=== PATIENT | female | born 1980 | race Caucasian/White ===

== ENCOUNTER 2017-07-26 11:55 | Emergency (ER) | payer MEDICAID ==
[~2017-07-26] VITALS: Ht 157.5 cm; Wt 86.9 kg
[2017-07-26 12:12] VITALS: BP 128/91
--- NOTE | 2017-07-26 12:17 | NUR ---
PATIENT PRESENTS TO ED WITH LEFT EAR PAIN X 4 DAYS DENIES INJURY NO DRAINAGE . PT STATES . DENIES N/V/D; SKIN IS PINK/WARM/DRY; AAOX4 WITH EVEN AND STEADY GAIT; LUNGS CLEAR BL; HR EVEN AND REGULAR; PT DENIES ANY FEVER, CP, SOB, OR COUGH AT THIS TIME; PATIENT STATES PAIN OF 8/10 AT THIS TIME; VSS; PATIENT POSITIONED FOR COMFORT; HOB ELEVATED; BEDRAILS UP X2; BED DOWN. ER MD MADE AWARE OF PT STATUS.
--- NOTE | 2017-07-26 12:21 | NUR ---
DR FISHER AT BEDSIDE.
--- NOTE | 2017-07-26 12:28 | NUR ---
Patient discharged with v/s stable. Written and verbal after care instructions given and explained. Patient alert, oriented and verbalized understanding of instructions. Ambulatory with steady gait. All questions addressed prior to discharge. ID band removed. Patient advised to follow up with PMD. Rx of CIPRODEX given. Patient educated on indication of medication including possible reaction and side effects. Opportunity to ask questions provided and answered.
[2017-07-26 12:29] VITALS: BP 120/87
== END 2017-07-26 12:28 | disposition home or self-care (01) ==
LOC: MED 11:55
DX: H60.92 Unspecified otitis externa, left ear (principal); J45.909 Unspecified asthma, uncomplicated; I10 Essential (primary) hypertension; Z88.6 Allergy status to analgesic agent
CPT/HCPCS: 99283

== ENCOUNTER 2017-12-26 15:22 | Emergency (ER) | payer MEDICAID ==
[~2017-12-26] VITALS: Ht 157.5 cm; Wt 85.3 kg
[2017-12-26 15:26] VITALS: BP 132/86
--- NOTE | 2017-12-26 15:35 | NUR ---
37f bib with c/o 9/10 "sharp" left side facial pain radiating "at times" to left side of torso x 1 wk. Pt also report of n/v/d and photophobia. Pt is aox4 with steady gait. No acute neuro deficits noted. Skin is warm/dry/color appriopriate for ethnicity. RR are even and unlabored. No acute distress noted. ER md yuan by bedside examining pt. All needs met at this time. Will continue to monitor.
[2017-12-26] MEDS ORDERED: diphenhydrAMINE 50 MG/ML VIAL IM ONE (15:40)
[2017-12-26] MEDS ORDERED: PROCHLORPERAZINE 10 MG/2 ML VIAL IM ONE (15:40)
[2017-12-26 17:24] VITALS: BP 124/86
--- NOTE | 2017-12-26 17:24 | NUR ---
Patient discharged with v/s stable. Written and verbal after care instructions given and explained. Patient alert, oriented and verbalized understanding of instructions. Ambulatory with steady gait. All questions addressed prior to discharge. ID band removed. Patient advised to follow up with PMD. Rx of Compazine nad Benadryl given. Patient educated on indication of medication including possible reaction and side effects. Opportunity to ask questions provided and answered.
== END 2017-12-26 17:19 | disposition home or self-care (01) ==
LOC: MED 15:22
DX: G43.909 Migraine, unspecified, not intractable, without status migrainosus (principal); J45.909 Unspecified asthma, uncomplicated; I10 Essential (primary) hypertension; Z79.899 Other long term (current) drug therapy
CPT/HCPCS: 96372; 99284; J0780; J1200

== ENCOUNTER 2018-10-01 13:17 | Emergency (ER) | payer MEDICAID ==
[~2018-10-01] VITALS: Ht 157.5 cm; Wt 80.4 kg
[2018-10-01 13:49] VITALS: BP 122/84
--- NOTE | 2018-10-01 13:59 | NUR ---
Patient being evaluated by physician at bedside.
--- NOTE | 2018-10-01 14:03 | NUR ---
C/O BURNING LLQ PAIN RADIATING TO RLQ 7/10 WITH DIZZINESS AND MIGRAIN HEAD ACHE /10; -NVD. PER PT WAS SEEN AT [place] ABOUT 2 MONTHS AGO. PATIENT STATES PAIN OF 8/10 AT THIS TIME; VSS; PATIENT POSITIONED FOR COMFORT; HOB ELEVATED; BEDRAILS UP X1; BED DOWN. ER MD MADE AWARE OF PT STATUS.
--- NOTE | 2018-10-01 14:21 | NUR ---
PT TAKEN TO XRAY VIA WHEELCHAIR
[2018-10-01] MEDS ORDERED: KETOROLAC 30 MG/ML VIAL IVP ONE (14:30)
[2018-10-01] MEDS ORDERED: NACL 0.9% 1,000 ML IV ONE (14:30)
[2018-10-01 15:42] LABS: BASOPHILS % (AUTO) 0.5 % (0.0-2.0); EOSINOPHILS # (AUTO) 0.1 K/uL (0-0.4); EOSINOPHILS % (AUTO) 1.5 % (0.0-4.0); HEMATOCRIT 42.3 % (36-48); HEMOGLOBIN 14.1 g/dL (12.0-16.0); LYMPHOCYTES # (AUTO) 1.9 K/uL (2.5-16.5); LYMPHOCYTES % (AUTO) 34.4 % (20.5-51.1); MEAN CORPUSCULAR HEMOGLOBIN 28 pg (27-31); MEAN CORPUSCULAR HGB CONC 33 g/dL (33-37); MEAN CORPUSCULAR VOLUME 83.8 fL (80-94); MONOCYTES # (AUTO) 0.6 K/uL (0.8-1.0); MONOCYTES % (AUTO) 10.3 % (1.7-9.3); NEUTROPHILS # (AUTO) 2.9 K/uL (1.8-7.7); NEUTROPHILS % (AUTO) 53.3 % (42.2-75.2); PLATELET COUNT (AUTO) 176 K/uL (140-450); RED BLOOD CELL COUNT(AUTO) 5.05 MIL/uL (4.20-5.40); RED CELL DISTRIBUTION WIDTH 13.3 % (11.6-13.7); WHITE BLOOD COUNT (AUTO) 5.5 K/uL (4.8-10.8)
[2018-10-01 16:04] LABS: ANION GAP 8.9 (8-16); CARBON DIOXIDE 29.1 mmol/L (21-32); CREATININE 0.8 mg/dL (0.6-1.3)
[2018-10-01 16:08] LABS: ALBUMIN 3.6 g/dL (3.4-5.0); TOTAL BILIRUBIN 0.5 mg/dL (0.0-1.0)
[2018-10-01 16:40] VITALS: BP 135/72
--- NOTE | 2018-10-01 16:40 | NUR ---
Patient discharged with v/s stable. Written and verbal after care instructions given and explained. Patient alert, oriented and verbalized understanding of instructions. Ambulatory with steady gait. All questions addressed prior to discharge. ID band removed. Patient advised to follow up with PMD. Rx of mineral oil/ lactulose given. Patient educated on indication of medication including possible reaction and side effects. Opportunity to ask questions provided and answered.
== END 2018-10-01 16:40 | disposition home or self-care (01) ==
LOC: MED 13:17
DX: K59.00 Constipation, unspecified (principal); J45.909 Unspecified asthma, uncomplicated; I10 Essential (primary) hypertension; Z88.6 Allergy status to analgesic agent
CPT/HCPCS: 36415; 74022; 76856; 80053; 81002; 81025; 85025; 96374; 99284; J1885; J7030; Q0092

== ENCOUNTER 2019-07-28 09:34 | Emergency (ER) | payer MEDICAID ==
[~2019-07-28] VITALS: Ht 160 cm; Wt 80.7 kg
[2019-07-28 09:41] VITALS: BP 116/76
--- NOTE | 2019-07-28 09:56 | NUR ---
C/O CENTER LOWER BACK PAIN / X1 WEEK. PT DENIES INJURY, NUMBNESS/TINGLING TO BLE. BED IN LOW POSITION, SIDE RAIL UP X1.
--- NOTE | 2019-07-28 10:10 | NUR ---
DR. MARTINEZ AT BEDSIDE
[2019-07-28] MEDS ORDERED: MORPHINE SULFATE 4 MG/ML SYR IM ONE (10:20)
[2019-07-28] MEDS ORDERED: KETOROLAC 60 MG/2 ML VIAL IM ONE (10:20)
[2019-07-28 11:00] VITALS: BP 116/76
== END 2019-07-28 11:00 | disposition home or self-care (01) ==
LOC: MED 09:34
DX: S33.5XXA Sprain of ligaments of lumbar spine, initial encounter (principal); S39.012A Strain of muscle, fascia and tendon of lower back, initial encounter; M47.816 Spondylosis without myelopathy or radiculopathy, lumbar region; J45.909 Unspecified asthma, uncomplicated; I10 Essential (primary) hypertension; Z88.5 Allergy status to narcotic agent; X58.XXXA Exposure to other specified factors, initial encounter; Y92.89 Other specified places as the place of occurrence of the external cause; Y93.89 Activity, other specified; Y99.8 Other external cause status
CPT/HCPCS: 81002; 81025; 96372; 99283; J1885; J2270

== ENCOUNTER 2019-11-13 13:26 | Emergency (ER) | payer MEDICAID ==
[~2019-11-13] VITALS: Ht 160 cm; Wt 81.9 kg
[2019-11-13 13:30] VITALS: BP 122/80
[2019-11-13 13:37] VITALS: BP 122/80
[2019-11-13] MEDS ORDERED: PRON INH (13:37)
--- NOTE | 2019-11-13 13:37 | NUR ---
PT IN ER LOBBY
--- NOTE | 2019-11-13 13:42 | NUR ---
PT AMBULATED TO BED 01.
--- NOTE | 2019-11-13 14:36 | NUR ---
Stable. VSS. No pain. MD has assessed and Dc'd home with script. To exit
== END 2019-11-13 14:36 | disposition home or self-care (01) ==
LOC: MED 13:26
DX: K60.2 Anal fissure, unspecified (principal); J45.909 Unspecified asthma, uncomplicated; I10 Essential (primary) hypertension; Z79.899 Other long term (current) drug therapy; Z88.6 Allergy status to analgesic agent
CPT/HCPCS: 81025; 99283

== ENCOUNTER 2020-02-25 08:33 | Emergency (ER) | payer MEDICAID ==
[~2020-02-25] VITALS: Ht 157.5 cm; Wt 81.2 kg
[~2020-02-25 08:33] MED LIST: PRON INH
[2020-02-25 08:37] VITALS: BP 132/86
--- NOTE | 2020-02-25 08:43 | NUR ---
dr perales at bedside evaluating pt.
[2020-02-25] MEDS ORDERED: DIAZEPAM 5 MG TAB PO ONE (09:00)
[2020-02-25] MEDS ORDERED: KETOROLAC 30 MG/ML VIAL IM ONE (09:00)
--- NOTE | 2020-02-25 09:04 | NUR ---
R SHOULDER PAIN X 1 WEEK DENIES INJURY , PT AWAKE, AOX4 , SCE , CBS BLF, LIMITED ROM RT SHOULDER. PMH- ASTHMA, HTN
--- NOTE | 2020-02-25 09:09 | NUR ---
xray at bedside.
--- NOTE | 2020-02-25 09:33 | NUR ---
PLACED SLING ON PT'S RIGHT ARM
--- NOTE | 2020-02-25 09:35 | NUR ---
PULSES WNL POST SLING
[2020-02-25 09:39] VITALS: BP 128/76
--- NOTE | 2020-02-25 09:39 | NUR ---
Patient discharged with v/s stable. Written and verbal after care instructions given and explained. Patient alert, oriented and verbalized understanding of instructions REAGRDING TENDONITIS. Ambulatory with steady gait. All questions addressed prior to discharge. ID band removed. Patient advised to follow up with PMD. Rx of VALIUM AND NAPROSYN given. Patient educated on indication of medication including possible reaction and side effects. Opportunity to ask questions provided and answered. INSTRUCTED TO APPLY ICE 2-3 TIMES PER DAY AND TO KEEP ARM AT HEART LEVEL WHEN RESTING AND TO WEAR SLING WHEN ACTIVE OR NOT AT HOME GIVEN EXCUSE FOR WORK GIVEN COPY OF XRAY RESULTS
--- NOTE | 2020-02-25 09:39 | NUR ---
NADR, PT REPORTS DECREASED PAIN. 12/03
== END 2020-02-25 09:39 | disposition home or self-care (01) ==
LOC: MED 08:33
DX: M75.31 Calcific tendinitis of right shoulder (principal); J45.909 Unspecified asthma, uncomplicated; I10 Essential (primary) hypertension; Z88.8 Allergy status to other drugs, medicaments and biological substances; Z90.49 Acquired absence of other specified parts of digestive tract
CPT/HCPCS: 73030; 96372; 99283; J1885; Q0092

== ENCOUNTER 2021-01-01 20:27 | Emergency (ER) | payer MEDICAID ==
[~2021-01-01] VITALS: Ht 157.5 cm; Wt 80.3 kg
[2021-01-01 20:31] VITALS: BP 129/72
[2021-01-01] MEDS ORDERED: ONDANSETRON 4 MG ODT PO ONE (21:00)
[2021-01-01] MEDS ORDERED: ONDA4TAB PO (21:13)
[2021-01-01 23:00] VITALS: BP 123/90
== END 2021-01-01 23:00 | disposition home or self-care (01) ==
LOC: MED 20:27
DX: R11.2 Nausea with vomiting, unspecified (principal); I10 Essential (primary) hypertension; J45.909 Unspecified asthma, uncomplicated; Z79.899 Other long term (current) drug therapy; Z88.5 Allergy status to narcotic agent
CPT/HCPCS: 81025; 99283; Q0162

== ENCOUNTER 2021-02-19 08:59 | Emergency (ER) | payer MEDICAID ==
[~2021-02-19] VITALS: Ht 157.5 cm; Wt 81.2 kg
[~2021-02-19 08:59] MED LIST changes: +ONDA4TAB PO
[2021-02-19 09:06] VITALS: BP 154/100
--- NOTE | 2021-02-19 09:14 | NUR ---
Patient ambulated to bed 2 with a steady gait.
--- NOTE | 2021-02-19 09:14 | NUR ---
Patient ambulated to bed 2. RN evaluating the patient at bedside.
--- NOTE | 2021-02-19 09:15 | NUR ---
Patient ambulated to the restroom with a steady gait.
--- NOTE | 2021-02-19 09:27 | NUR ---
Patient is a 40 y/o female c/c headache x5 days, n/v and dry cough since yesterday. Patient states the headache is a dull ache that is 9/10 in severity. Patient denies injury, trauma or LOC. Patient denies recent travel, covid-19 exposure, or sick contacts. PMH: asthma, HTN Surgeries: Hysterectomy 2017; cholecystectomy 2011
[2021-02-19] MEDS ORDERED: diphenhydrAMINE 50 MG/ML VIAL ONE (09:44)
[2021-02-19] MEDS: diphenhydrAMINE 50 MG/ML VIAL IVP ONE (09:50)
[2021-02-19] MEDS: NACL 0.9% 1,000 ML IV ONE (09:50)
[2021-02-19] MEDS: METOCLOPRAMIDE 10 MG/2 ML INJ VIAL IVP ONE (09:51)
[2021-02-19] MEDS: KETOROLAC 15 MG/ML VIAL IVP ONE (09:52)
[2021-02-19] MEDS ORDERED: ONDA-24 SL (10:30)
[2021-02-19] MEDS ORDERED: ACET-2619 PO (10:30)
[2021-02-19 10:49] VITALS: BP 154/100
--- NOTE | 2021-02-19 10:49 | NUR ---
Patient discharged with v/s stable. Written and verbal after care instructions given and explained. Patient alert, oriented and verbalized understanding of instructions. Ambulatory with steady gait. All questions addressed prior to discharge. ID band removed. Patient advised to follow up with PMD. Rx of acetaminophen, ondansetro given. Patient educated on indication of medication including possible reaction and side effects. Opportunity to ask questions provided and answered.
== END 2021-02-19 10:49 | disposition home or self-care (01) ==
LOC: MED 08:59
DX: G43.909 Migraine, unspecified, not intractable, without status migrainosus (principal); R11.2 Nausea with vomiting, unspecified; Z90.710 Acquired absence of both cervix and uterus
CPT/HCPCS: 81002; 81025; 96361; 96374; 96375; 99284; J1200; J1885; J2765; J7030

== ENCOUNTER 2021-10-12 10:44 | Emergency (ER) | payer MEDICAID ==
[~2021-10-12] VITALS: Ht 157.5 cm; Wt 78.5 kg
[~2021-10-12 10:44] MED LIST changes: +ACET-2619 PO; +ONDA-188 SL
[2021-10-12 11:09] VITALS: BP 133/92
[2021-10-12] MEDS ORDERED: PRED20TA5 PO (11:40)
[2021-10-12] MEDS ORDERED: CODE5SYR5 PO (11:40)
[2021-10-12] MEDS ORDERED: NAPR-54 PO (11:40)
[2021-10-12 12:01] VITALS: BP 128/84
--- NOTE | 2021-10-12 12:01 | NUR ---
Patient discharged with v/s stable. Written and verbal after care instructions given FOR VIRAL ILLNESS and explained. Patient alert, oriented and verbalized understanding of instructions. Ambulatory with steady gait. All questions addressed prior to discharge. ID band removed. Patient advised to follow up with PMD. Rx of PROMETHAZINE, NAPROXEN, AND PREDNISONE given. Patient educated on indication of medication including possible reaction and side effects. Opportunity to ask questions provided and answered.
[2021-10-12] MEDS ORDERED: PROM118S5 PO (12:26)
[2021-10-13] MEDS ORDERED: PRED20TA5 PO (19:40)
[2021-10-13] MEDS ORDERED: NAPR-54 PO (19:40)
[2021-10-13] MEDS ORDERED: PROM118S5 PO (19:40)
== END 2021-10-12 12:01 | disposition home or self-care (01) ==
LOC: MED 10:44
DX: B34.9 Viral infection, unspecified (principal); R51.9 Headache, unspecified; J45.909 Unspecified asthma, uncomplicated; I10 Essential (primary) hypertension; Z88.5 Allergy status to narcotic agent; Z79.899 Other long term (current) drug therapy
CPT/HCPCS: 99283

== ENCOUNTER 2022-03-06 09:40 | Emergency (ER) | payer MEDICAID ==
[~2022-03-06] VITALS: Ht 157.5 cm; Wt 72.1 kg
[~2022-03-06 09:40] MED LIST changes: +CODE5SYR5 PO; +NAPR-54 PO; +PRED20TA5 PO; +PROM118S5 PO
[2022-03-06 09:50] VITALS: BP 115/52
[2022-03-06] MEDS ORDERED: methylPREDNISolone SS 125 MG/2 ML VIAL IVP ONE (10:10)
[2022-03-06] MEDS ORDERED: ALBUTEROL HFA MDI 90 MCG/ACTUATION 8 GM INH ONE (10:10)
[2022-03-06] MEDS ORDERED: ONDANSETRON 4 MG/2 ML VIAL IVP ONE (10:10)
[2022-03-06] MEDS ORDERED: KETOROLAC 30 MG/ML VIAL IVP ONE (10:10)
[2022-03-06] MEDS ORDERED: NACL 0.9% 1,000 ML IV ONE (10:10)
[2022-03-06 10:32] LABS: BASOPHILS % (AUTO) 0.6 % (0.0-2.0); EOSINOPHILS # (AUTO) 0.3 K/uL (0-0.4); EOSINOPHILS % (AUTO) 3.9 % (0.0-4.0); HEMATOCRIT 38.6 % (36-48); HEMOGLOBIN 13.1 g/dL (12.0-16.0); LYMPHOCYTES # (AUTO) 1.1 K/uL (2.5-16.5); LYMPHOCYTES % (AUTO) 16.8 % (20.5-51.1); MEAN CORPUSCULAR HEMOGLOBIN 29 pg (27-31); MEAN CORPUSCULAR HGB CONC 34 g/dL (33-37); MEAN CORPUSCULAR VOLUME 83.8 fL (80-94); MONOCYTES # (AUTO) 0.7 K/uL (0.8-1.0); MONOCYTES % (AUTO) 10.3 % (1.7-9.3); NEUTROPHILS # (AUTO) 4.5 K/uL (1.8-7.7); NEUTROPHILS % (AUTO) 68.4 % (42.2-75.2); PLATELET COUNT (AUTO) 237 K/uL (140-450); RED BLOOD CELL COUNT(AUTO) 4.61 MIL/uL (4.20-5.40); RED CELL DISTRIBUTION WIDTH 13.7 % (11.6-13.7); WHITE BLOOD COUNT (AUTO) 6.6 K/uL (4.8-10.8)
[2022-03-06 10:47] LABS: ALBUMIN 3.5 g/dL (3.4-5.0); ANION GAP 11.1 (8-16); CARBON DIOXIDE 26.5 mmol/L (21-32); CREATININE 0.8 mg/dL (0.6-1.3); POTASSIUM 3.6 mmol/L (3.5-5.1); TOTAL BILIRUBIN 0.7 mg/dL (0.0-1.0)
[2022-03-06 10:50] LABS: LACTATE DEHYDROGENASE 124 U/L (81-234)
[2022-03-06 11:15] LABS: PROTHROMBIN TIME 9.4 secs (10.8-13.4)
[2022-03-06] MEDS ORDERED: DOPPLER MC ONE (11:44)
[2022-03-06 11:56] LABS: C-REACTIVE PROTEIN QUANT 1.7 mg/dL (0.0-0.9)
[2022-03-06] MEDS ORDERED: ACETAMINOPHEN 325 MG TAB PO ONE (13:05)
[2022-03-06] MEDS ORDERED: NAPR-1704 PO (13:07)
[2022-03-06] MEDS ORDERED: NIRM1TAB5 PO (13:07)
[2022-03-06] MEDS ORDERED: ONDA-188 PO (13:07)
[2022-03-06 13:17] LABS: APPEARANCE,URINE SL CLOUDY (CLEAR); BLOOD, URINE NEGATIVE (NEGATIVE); COLOR,URINE BROWN (YELLOW); LEUKOCYTE ESTERASE ,URINE 1+ (NEGATIVE); NITRITE, URINE NEGATIVE (NEGATIVE); PH,URINE 6.5 (5.0-9.0); UGLUCOSE NEGATIVE (NEGATIVE)
[2022-03-06 13:41] LABS: BILIRUBIN,URINE 1+ (NEGATIVE)
[2022-03-06 13:49] VITALS: BP 113/81
== END 2022-03-06 13:49 | disposition home or self-care (01) ==
LOC: MED 09:40
DX: U07.1 COVID-19 (principal); J45.909 Unspecified asthma, uncomplicated; I10 Essential (primary) hypertension; Z90.710 Acquired absence of both cervix and uterus; Z79.899 Other long term (current) drug therapy; Z79.1 Long term (current) use of non-steroidal anti-inflammatories (NSAID); Z88.5 Allergy status to narcotic agent
CPT/HCPCS: 36415; 71045; 80053; 81001; 83605; 83615; 83880; 84484; 85025; 85379; 85384; 85610; 85730; 86140; 87040; 87086; 87426; 87804; 93005; 94640; 96361; 96374; 96375; 99285; J1885; J2405; J2930; J7030; Q0092

== ENCOUNTER 2022-03-15 16:17 | Emergency (ER) | payer MEDICAID ==
[~2022-03-15] VITALS: Ht 157.5 cm; Wt 75.3 kg
[~2022-03-15 16:17] MED LIST changes: +NAPR-1704 PO; +NIRM1TAB5 PO; +ONDA-188 PO
[2022-03-15 17:02] VITALS: BP 132/94
--- NOTE | 2022-03-15 17:15 | NUR ---
Called for patient in lobby no answer.
--- NOTE | 2022-03-15 17:35 | NUR ---
PATIENT AMBULATED TO ROOM 1
[2022-03-15] MEDS ORDERED: METOCLOPRAMIDE 10 MG/2 ML INJ VIAL IVP ONE (18:00)
[2022-03-15] MEDS ORDERED: KETOROLAC 15 MG/ML VIAL IVP ONE (18:00)
[2022-03-15] MEDS ORDERED: diphenhydrAMINE 50 MG/ML VIAL IVP ONE (18:00)
[2022-03-15] MEDS ORDERED: NACL 0.9% 1,000 ML IV ONE (18:00)
--- NOTE | 2022-03-15 18:07 | NUR ---
LAB AT BEDSIDE.
[2022-03-15 18:14] LABS: BASOPHILS % (AUTO) 0.5 % (0.0-2.0); EOSINOPHILS # (AUTO) 0.3 K/uL (0-0.4); EOSINOPHILS % (AUTO) 3.8 % (0.0-4.0); HEMATOCRIT 37.1 % (36-48); HEMOGLOBIN 12.6 g/dL (12.0-16.0); LYMPHOCYTES # (AUTO) 0.8 K/uL (2.5-16.5); MEAN CORPUSCULAR HEMOGLOBIN 28 pg (27-31); MEAN CORPUSCULAR HGB CONC 34 g/dL (33-37); MEAN CORPUSCULAR VOLUME 83.1 fL (80-94); MONOCYTES # (AUTO) 0.7 K/uL (0.8-1.0); NEUTROPHILS # (AUTO) 6.8 K/uL (1.8-7.7); NEUTROPHILS % (AUTO) 78.7 % (42.2-75.2); PLATELET COUNT (AUTO) 248 K/uL (140-450); RED BLOOD CELL COUNT(AUTO) 4.47 MIL/uL (4.20-5.40); RED CELL DISTRIBUTION WIDTH 13.7 % (11.6-13.7); WHITE BLOOD COUNT (AUTO) 8.7 K/uL (4.8-10.8)
--- NOTE | 2022-03-15 18:33 | NUR ---
41 y/o female c/o nausea and vomiting x 4 days. Patient denies being around anyone who is sick or eating anything new. Patient is noted with facial swelling to right cheek. Patient had fever at home at 102.1, temperature at triage was 98.9 F. Medical History: Asthma, HTN ALLERGY: TRAMADOL
[2022-03-15 18:35] LABS: ALBUMIN 3.4 g/dL (3.4-5.0); ANION GAP 10.8 (8-16); CARBON DIOXIDE 26.1 mmol/L (21-32); CREATININE 0.7 mg/dL (0.6-1.3); POTASSIUM 3.9 mmol/L (3.5-5.1); TOTAL BILIRUBIN 0.6 mg/dL (0.0-1.0)
--- NOTE | 2022-03-15 18:50 | NUR ---
medicated as per ErMds order, tolerated well.
--- NOTE | 2022-03-15 19:20 | NUR ---
Pt report given to SAMUEL Wilcox. Transfer of care at this time.
[2022-03-15] MEDS ORDERED: CLIN300C2 PO (19:47)
[2022-03-15 20:53] VITALS: BP 134/92
--- NOTE | 2022-03-15 20:57 | NUR ---
Patient discharged with v/s stable. Written and verbal after care instructions given and explained. Patient alert, oriented and verbalized understanding of instructions. Ambulatory with steady gait. All questions addressed prior to discharge. ID band removed. Patient advised to follow up with PMD. Rx of CLEOCIN HCL given. Patient educated on indication of medication including possible reaction and side effects. Opportunity to ask questions provided and answered.
== END 2022-03-15 20:57 | disposition home or self-care (01) ==
LOC: MED 16:17
DX: G43.909 Migraine, unspecified, not intractable, without status migrainosus (principal); K04.7 Periapical abscess without sinus; R11.2 Nausea with vomiting, unspecified; J45.909 Unspecified asthma, uncomplicated; I10 Essential (primary) hypertension; Z79.2 Long term (current) use of antibiotics; Z79.891 Long term (current) use of opiate analgesic; Z79.1 Long term (current) use of non-steroidal anti-inflammatories (NSAID); Z79.899 Other long term (current) drug therapy; Z88.5 Allergy status to narcotic agent
CPT/HCPCS: 36415; 80053; 85025; 96361; 96374; 96375; 99284; J1200; J1885; J2765; J7030

== ENCOUNTER 2022-04-22 09:59 | Emergency (ER) | payer MEDICAID ==
[~2022-04-22] VITALS: Ht 157.5 cm; Wt 77.1 kg
[~2022-04-22 09:59] MED LIST changes: +CLIN300C2 PO
[2022-04-22 10:00] VITALS: BP 117/83
--- NOTE | 2022-04-22 10:10 | NUR ---
PT AMBULATED WITH STEADY GAIT TO BED 3
--- NOTE | 2022-04-22 10:22 | NUR ---
42 Y/O FEMALE BIB C/O OF LUMP IN RIGHT SIDE OF THE THROAT, DIFFICULTY SWALLOWING, DENIES ANY SOB, DENIES ANY COUGH. PT STATES THAT HER HEART "IS NOT BEATING IT SHOULD" HR 110 IN BED, 89 IN TRIAGE, C/O OF "ON AND OFF" CHEST PAIN, NON-RADIATING 4/10 [id number] PLACED ON TIRE FIXER. PMH: HTN, VERTIGP, ASTHMA HX: THYROID CA, CHF NKA Home meds: LISINOPRIL, ALBUTEROL
--- NOTE | 2022-04-22 10:33 | NUR ---
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
--- NOTE | 2022-04-22 11:12 | NUR ---
Dr Richard at bedside for evaluation
--- NOTE | 2022-04-22 11:47 | NUR ---
lab at bedside
[2022-04-22 12:11] LABS: BASOPHILS % (AUTO) 0.7 % (0.0-2.0); EOSINOPHILS # (AUTO) 0.1 K/uL (0-0.4); EOSINOPHILS % (AUTO) 2.5 % (0.0-4.0); HEMATOCRIT 34.4 % (36-48); HEMOGLOBIN 11.5 g/dL (12.0-16.0); LYMPHOCYTES % (AUTO) 24.4 % (20.5-51.1); MEAN CORPUSCULAR HEMOGLOBIN 27 pg (27-31); MEAN CORPUSCULAR HGB CONC 34 g/dL (33-37); MONOCYTES # (AUTO) 0.5 K/uL (0.8-1.0); MONOCYTES % (AUTO) 12.5 % (1.7-9.3); NEUTROPHILS # (AUTO) 2.5 K/uL (1.8-7.7); NEUTROPHILS % (AUTO) 59.9 % (42.2-75.2); PLATELET COUNT (AUTO) 241 K/uL (140-450); RED BLOOD CELL COUNT(AUTO) 4.24 MIL/uL (4.20-5.40); RED CELL DISTRIBUTION WIDTH 13.7 % (11.6-13.7); WHITE BLOOD COUNT (AUTO) 4.1 K/uL (4.8-10.8)
[2022-04-22] MEDS: ACETAMINOPHEN EXTRA STRENGTH 500 MG TAB PO ONE (12:59)
[2022-04-22 13:24] LABS: ALBUMIN 3.1 g/dL (3.4-5.0); ASPARTATE AMINOTRANSFERASE 32 U/L (15-37); CARBON DIOXIDE 24.5 mmol/L (21-32); CHLORIDE 102 mmol/L (98-107); CREATININE 0.6 mg/dL (0.6-1.3); FREE T4 (FREE THYROXINE) 1.09 ng/dL (0.76-1.46); GFR ARICAN-AMERICAN 142 mL/min (>90); GLUCOSE 88 mg/dL (74-106); POTASSIUM 3.5 mmol/L (3.5-5.1); SODIUM SERUM 137 mmol/L (136-145); TOTAL BILIRUBIN 0.7 mg/dL (0.0-1.0); UREA NITROGEN, BLOOD 9 mg/dL (7-18)
[2022-04-22 13:49] VITALS: BP 119/81
--- NOTE | 2022-04-22 13:49 | NUR ---
Patient discharged with v/s stable. Written and verbal after care instructions about palpitations given and explained. Patient verbalized understanding. Ambulatory with steady gait. All questions addressed prior to discharge. Advised to follow up with PMD.
== END 2022-04-22 13:49 | disposition home or self-care (01) ==
LOC: MED 09:59
DX: R00.2 Palpitations (principal); R22.1 Localized swelling, mass and lump, neck; J45.909 Unspecified asthma, uncomplicated; I10 Essential (primary) hypertension; Z79.899 Other long term (current) drug therapy; Z88.5 Allergy status to narcotic agent
CPT/HCPCS: 36415; 80053; 84439; 84443; 84484; 85025; 93005; 99284

== ENCOUNTER 2022-08-27 15:39 | Emergency (ER) | payer MEDICAID ==
[~2022-08-27] VITALS: Ht 157.5 cm; Wt 54.4 kg
[2022-08-27 15:56] VITALS: BP 116/77
--- NOTE | 2022-08-27 16:13 | NUR ---
Pt w/c assisted to lobby.
--- NOTE | 2022-08-27 17:36 | NUR ---
1721: NO answer in lobby/outside ER lobby 1730: no answer 1735: No answer outside ER lobby/lobby
--- NOTE | 2022-08-27 17:37 | NUR ---
Pt left without being seen.
== END 2022-08-27 17:21 | disposition left against medical advice (07) ==
LOC: MED 15:39
DX: R05.9 Cough, unspecified (principal); Z53.21 Procedure and treatment not carried out due to patient leaving prior to being seen by health care provider
CPT/HCPCS: 93005

== ENCOUNTER 2022-09-01 17:45 | Emergency (ER) | payer MEDICAID ==
--- NOTE | 2022-09-01 18:13 | NUR ---
PATIENT LEFT WITHOUT BEING SEEN BY DR. EWING. NO FURTHER CARE PROVIDED FOR PATIENT. PT STATED" I DON'T WANT TO WAIT. i WANT TO LIE DOWN IN BED" I WIIL LEAVE NOW.
== END 2022-09-01 18:13 | disposition left against medical advice (07) ==
LOC: MED 17:45
DX: R06.02 Shortness of breath (principal); Z53.21 Procedure and treatment not carried out due to patient leaving prior to being seen by health care provider